=== PATIENT | female | born 1960 | race Two or more races ===

== ENCOUNTER 2019-01-05 10:52 | Outpatient (CLI) | payer OTHER | END 2019-01-09 11:10 | disposition home or self-care (01) | LOC: RX STUDY 10:52 | DX: N82.3 Fistula of vagina to large intestine (principal); K59.02 Outlet dysfunction constipation ==

== ENCOUNTER 2019-01-27 09:44 | Outpatient (CLI) | payer OTHER | END 2019-01-27 09:49 | disposition home or self-care (01) | LOC: TOM 09:44 | DX: R10.31 Right lower quadrant pain (principal); R10.32 Left lower quadrant pain | CPT/HCPCS: 74177; Q9965 ==

== ENCOUNTER 2019-02-13 10:43 | Outpatient (CLI) | payer OTHER | END 2019-02-13 10:49 | disposition home or self-care (01) | LOC: MRI 10:43 | DX: M54.2 Cervicalgia (principal); M50.11 Cervical disc disorder with radiculopathy, high cervical region; M50.121 Cervical disc disorder at C4-C5 level with radiculopathy; M50.122 Cervical disc disorder at C5-C6 level with radiculopathy; M50.123 Cervical disc disorder at C6-C7 level with radiculopathy | CPT/HCPCS: 72141 ==